=== PATIENT | female | born 1955 | race Two or more races ===

== ENCOUNTER 2024-05-21 14:20 | Emergency (ER) | payer OTHER ==
[~2024-05-21] VITALS: Ht 160 cm; Wt 59.0 kg
[2024-05-21] MEDS ORDERED: LIPITOR40 M1 PO (14:47)
[2024-05-21] MEDS ORDERED: ABANEU-SL TABL1 EACH SL (14:47)
[2024-05-21] MEDS ORDERED: ATACAND32 MG PO (14:48)
[2024-05-21] MEDS ORDERED: TOPROL XL25 M1 PO (14:48)
[2024-05-21] MEDS ORDERED: ZETIA10 MG PO (14:48)
[2024-05-21] MEDS ORDERED: VASOFLEX D1 CA1 EACH PO (14:48)
[2024-05-21 17:26] LABS: HEMATOCRIT 42.2 % (36.0-45.00); MEAN CELL VOLUME 85.7 fL (80.00-100.00); MEAN CORPUSCULAR HEMOGLOBIN 28.4 pg (27.00-32.0); MEAN CORPUSCULAR HGB CONC 33.1 g/dl (32.0-36.0); PLATELET COUNT 189 K/uL (150-450); RED BLOOD COUNT 4.93 M/uL (4.00-6.00); RED CELL DISTRIBUTION WIDTH 13.4 % (11.5-14.5)
[2024-05-21 17:57] LABS: ALBUMIN 3.9 gm/dL (3.4-5.0); BILIRUBIN TOTAL 0.57 mg/dL (0.3-1.2); CALCIUM 9.5 mg/dL (8.5-10.1); CREATININE SERUM 0.63 mg/dL (0.55-1.02); GFR 93.69; GLOBULINA 2.8 G/DL (2.4-3.5); POTASSIUM 3.55 mEq/L (3.5-5.1); TOTAL PROTEIN 6.7 gm/dL (6.4-8.2)
[2024-05-21] MEDS ORDERED: AYR SALINE50 ML NASAL (18:44)
== END 2024-05-21 19:40 | disposition home or self-care (01) ==
LOC: ER 14:20
PROVIDERS: General Practice
DX: R53.81 Other malaise (principal); R00.2 Palpitations; I10 Essential (primary) hypertension; E03.8 Other specified hypothyroidism